=== PATIENT | female | born 1960 | race Caucasian/White ===

== ENCOUNTER → 2021-06-15 | Outpatient (CLI) | payer MEDICARE ==
[~2021-06-15] MED LIST: ALDACTONE25 MG PO; AMOX TR-K CLV1 EAC4 PO; ASPIRIN EC81 MG PO; ATORVASTATIN CA20 MG PO; CLOPIDOGREL75 MG PO; COMBIVENT RESPIM4 GM INH; COZAAR 25MG TAB25 MG PO; ELIQUIS 5 MG TAB5 MG PO; FERROUS GLUCON324 M1 PO; FERROUS SULFAT325 MG PO; FUROSEMIDE40 MG PO; IPRAT-ALBUT 0.5-3 ML INH; LASIX 40 MG TAB40 MG PO; LIPITOR40 MG PO; LISINOPRIL2.5 MG PO; LOPRESSOR 25 MG25 MG PO; METOPROLOL SUCC25 MG PO; MUCUS RELIEF600 MG PO; PANTOPRAZOLE SO40 MG PO; PERCOCET 5/325 T1 EA PO; POTASSIUM CHLO20 ME1 PO; SPIRIVA HANDIH18 MCG INH; SYMBICORT 16010.2 GM INH
== END ==
LOC: HEART 5 15:44
DX: J44.9 Chronic obstructive pulmonary disease, unspecified (principal)
CPT/HCPCS: 94060; 94729